=== PATIENT | male | born 1965 | race Two or more races ===

== ENCOUNTER → 2023-04-24 | Emergency (ER) | payer OTHER ==
[~2023-04-24] VITALS: Ht 185.4 cm; Wt 122.5 kg
[~2023-04-24] MED LIST: ADMELOG100 UNIT/1 SQ; AMLODIPINE BESY10 MG PO; LANTUS SOL100 UNIT/1; LORAZEPAM1 MG PO; LOSARTAN POTAS100 MG PO; RESTORIL30 MG PO; SEROQUEL200 MG PO; SYNTHROID200 MCG PO
== END | disposition left against medical advice (07) ==
LOC: ER 14:49
DX: Z53.21 Procedure and treatment not carried out due to patient leaving prior to being seen by health care provider (principal)